=== PATIENT | female | born 1995 | race Caucasian/White ===

== ENCOUNTER 2018-09-15 09:44 | Emergency (ER) | payer BC ==
[2018-09-15 10:04] VITALS: BP 142/92
--- NOTE | 2018-09-15 10:19 | UC ---
Skin Complaint HPI - HPI Summary HPI Summary: 22 year old female presents for evaluation of pain, redness, and crusting on the left forearm and right lateral lower leg. Pt had these areas professionally tattooed on 09/06/18. She states her symptoms started 2 days ago. She has been using aquaphor and dove unscented soap to clean and dress the tattoos. She states she felt "a little feverish and nauseous" last night but not today. She also reports having mild discharge in these areas. She denies arthalgia, loss of ROM, numbness, abdominal pain, and vomiting. - History of Current Complaint Chief Complaint: UCSkin Time Seen by Provider: 09/15/18 10:02 Stated Complaint: PAINFUL TATTOO Hx Obtained From: Patient Hx Last Menstrual Period: [id number] Pain Intensity: 3 - Allergy/Home Medications Allergies/Adverse Reactions: Allergies Allergy/AdvReac Type Severity Reaction Status Date / Time No Known Allergies Allergy Verified 09/15/18 10:04 Home Medications: Home Medications glipiZIDE TAB* [Glucotrol TAB*] 5 mg PO BID 09/15/18 [History Confirmed 09/15/18 ] metFORMIN* [Glucophage 500 MG TAB *] 500 mg PO BID 09/15/18 [History Confirmed 09/15/18] PMH/Surg Hx/FS Hx/Imm Hx Previously Healthy: Yes Endocrine History: Diabetes - Surgical History Surgical History: Yes Surgery Procedure, Year, and Place: tonsillectomy/adenoiectomy 07/01 - Family History Known Family History: Positive: Non-Contributory - Social History Occupation: Employed Full-time Alcohol Use: Occasionally Substance Use Type: None Smoking Status (MU): Never Smoked Tobacco Review of Systems All Other Systems Reviewed And Are Negative: Yes Constitutional: Positive: Fever - felt "feverish" last night. Negative: Chills , Fatigue Skin: Positive: Other - redness, pain, crusting on the left forearm and right lateral lower leg Respiratory: Negative: Shortness Of Breath Cardiovascular: Negative: Palpitations, Chest Pain Gastrointestinal: Negative: Abdominal Pain, Vomiting, Diarrhea Motor: Negative: Decreased ROM Neurovascular: Positive: Negative. Negative: Decreased Sensation Musculoskeletal: Positive: Negative. Negative: Arthralgia Neurological: Positive: Negative. Negative: Headache, Weakness, Paresthesia, Numbness Physical Exam Triage Information Reviewed: Yes Appearance: Well-Appearing, No Pain Distress, Well-Nourished Vital Signs: Initial Vital Signs Temp 97.2 F 09/15/18 09:59 Pulse 72 09/15/18 09:59 Resp 18 09/15/18 09:59 BP 142/92 09/15/18 09:59 Pulse Ox 100 09/15/18 09:59 Vital Signs Reviewed: Yes Eyes: Positive: Conjunctiva Clear ENT: Positive: Normal ENT inspection, Hearing grossly normal Neck exam: Normal Neck: Positive: Supple Respiratory: Positive: Lungs clear, Normal breath sounds, No respiratory distress Cardiovascular: Positive: RRR, No Murmur, Pulses Normal, Brisk Capillary Refill Musculoskeletal: Positive: Strength Intact, ROM Intact Neurological: Positive: Alert, Muscle Tone Normal Skin: Positive: Other - Tattoos on the left forearm and right lateral leg are with areas of erythema and crusting. Right lower leg is with tenderness and purulent discharge Course/Dx - Course Course Of Treatment: Pt presents with pain, redness, and tenderness on the left forearm and right lateral leg. She had these areas tattooed professionally about 7 days prior to onset of her symptoms. Her exam reveals erythema and crusting to the areas with minimal purulent discharge on the right leg. Pt prescribed bactrim for 7 days and is treated for cellulitis. A wound culture obtained today and there were no areas that needed draining. Pt to clean the area with cholrhexidine wash. She is to follow up with any fevers, chills, and worsening of pain/tenderness and erythema. Patient was seen in conjunction with the physician field administrative assistant student. All represented history, physical and medical decision-making her mind. Patient was given chlorhexidine with which to clean the area. She was started on anti- staph antibiotic and a culture was obtained. - Differential Diagnoses - Skin Complaint Differential Diagnoses: Abscess, Cellulitis, Impetigo, Lymphangitis, MRSA - Diagnoses Provider Diagnosis: Cellulitis Discharge - Sign-Out/Discharge Documenting (check all that apply): Patient Departure All imaging exams completed and their final reports reviewed: No Studies - Discharge Plan Condition: Improved Disposition: HOME Prescriptions: Sulfamethox/Trimethoprim DS* [Bactrim DS 800/160 TAB*] 1 tab PO BID #14 tab Patient Education Materials: Cellulitis (ED) Referrals: Valeria Liriano MD [Primary Care Provider] - Additional Instructions: Clean the area with the any septic soap provided. Return with red streaking up the leg, fever, worse or other concerns. Dress the areas with bacitracin ointment. Warm compresses may help. - Billing Disposition and Condition Condition: IMPROVED Disposition: Home - Attestation Statements Document Initiated by Scribe: No
== END 2018-09-15 10:45 | disposition home or self-care (01) ==
LOC: UCEAST 09:44
DX: L03.114 Cellulitis of left upper limb (principal); L03.115 Cellulitis of right lower limb; E11.9 Type 2 diabetes mellitus without complications; Z79.84 Long term (current) use of oral hypoglycemic drugs
CPT/HCPCS: 87070; 87077; 87186; 87205; 99212; G0463

== ENCOUNTER 2019-04-08 17:17 | Emergency (ER) | payer BC ==
[2019-04-08 17:45] VITALS: BP 162/84
--- NOTE | 2019-04-08 18:10 | UC ---
Complaint Female HPI - HPI Summary HPI Summary: 23-year-old female who states she had pelvic pain last week which resolved in one day. Today it started again and she feels like her IUD is coming out. She is presently menstruating. She denies any abnormal vaginal discharge. She denies any urinary symptoms. No fever or chills. - History Of Current Complaint Chief Complaint: UCGU Stated Complaint: PERSONAL Time Seen by Provider: 04/08/19 18:09 Hx Obtained From: Patient Hx Last Menstrual Period: current ?: No Onset/Duration: Gradual Onset Timing: Constant Severity Initially: Mild Severity Currently: Moderate Pain Intensity: 7 Character: Sharp Aggravating Factor(s): Movement Alleviating Factor(s): Nothing Associated Signs And Symptoms: Positive: Vaginal Bleeding/Discharge - Presently menstruating. Negative: Vaginal Discharge, Nausea, Vomiting(# Of Episodes =), Genital Swelling, Genital Blisters, Retained Foregin Body (Specify) - Allergies/Home Medications Allergies/Adverse Reactions: Allergies Allergy/AdvReac Type Severity Reaction Status Date / Time No Known Allergies Allergy Verified 04/08/19 17:45 PMH/Surg Hx/FS Hx/Imm Hx Previously Healthy: Yes Endocrine History: Diabetes - Borderline diabetes Respiratory History: Asthma - Surgical History Surgical History: Yes Surgery Procedure, Year, and Place: tonsillectomy/adenoiectomy 07/01 - Family History Known Family History: Positive: Non-Contributory - Social History Lives: With Family Alcohol Use: Occasionally Substance Use Type: None Smoking Status (MU): Never Smoked Tobacco Review of Systems All Other Systems Reviewed And Are Negative: Yes Gastrointestinal: Positive: Abdominal Pain - Pelvic pain one day last week which resolved spontaneously and then pelvic pain started again today. Patient is presently menstruating. Is Patient Immunocompromised?: No Physical Exam Triage Information Reviewed: Yes Appearance: Pain Distress - Mild pelvic pain with movement., Obese Vital Signs: Initial Vital Signs Temp 97.5 F 04/08/19 17:41 Pulse 81 04/08/19 17:41 Resp 16 04/08/19 17:41 BP 162/84 04/08/19 17:41 Pulse Ox 98 04/08/19 17:41 Vital Signs Reviewed: Yes Eyes: Positive: Conjunctiva Clear ENT: Positive: Hearing grossly normal, Pharynx normal, TMs normal, Uvula midline Neck: Positive: Supple, Nontender, No Lymphadenopathy Respiratory: Positive: Lungs clear, Normal breath sounds, No respiratory distress, No accessory muscle use Cardiovascular: Positive: RRR, No Murmur, Pulses Normal, Brisk Capillary Refill Abdomen Description: Positive: No Organomegaly, Soft, Other: - Tenderness over the pelvic area and suprapubic area.. Negative: CVA Tenderness (R), CVA Tenderness (L), Distended, Guarding, Hepatomegaly, McBurney's Point Tenderness, Splenomegaly Bowel Sounds: Positive: Present Pelvic Exam: Positive: External Exam Normal, Bimanual Exam Normal, No Cerv. Motion Tender, Other - Part of the IUD could be visualized in the cervix. It was removed without difficulty and within 5 minutes the patient was feeling much better and her pelvic pain was almost resolved. There was only a small amount of brownish blood in the vaginal canal. Musculoskeletal Exam: Normal Neurological Exam: Normal Psychological Exam: Normal Skin Exam: Normal Complaint Female Dx - Course Course Of Treatment: Transvaginal sonogram:TRANS US TRANSVAGINAL 10/16/2015 10:30 PM FINDINGS: Uterus/ cervix: The IUD is malpositioned or has migrated inferiorly with the upper portion in the lower uterine segment and the lower portion in the lower aspect of the endocervical canal. The uterus measures 7.1 x 2.7 x 3.3 cm. Endometrial stripe thickness is 2 mm. Right adnexa: The right ovary measures 1.8 x 1.8 x 2.1 cm with normal Doppler flow. Left adnexa: The left ovary measures 3.0 x 1.8 x 2.9 cm with normal Doppler flow. Free fluid: There is a small volume of free fluid in the posterior pelvic cul-de-sac, cannot exclude ovarian cyst rupture. IMPRESSION: 1. The IUD is malpositioned or has migrated inferiorly with the upper portion in the lower uterine segment and the lower portion in the lower aspect of the endocervical canal. 2. There is a small volume of free fluid in the posterior pelvic cul-de-sac, cannot exclude ovarian cyst rupture. To contact [facility] with a general question: [facility] - [phone] For direct physician to physician contact: Physician Hotline - [phone] [facility] ([facility] Facility ID #[id number]) I was able to remove the IUD without difficulty and the patient felt much better with less cramping after just 5 minutes. She is to follow-up with her OB /SEAM RUBBER provider to discuss other methods of control. Patient was discharged ambulatory feeling much better. No evidence of pelvic infection. - Differential Dx/Diagnosis Provider Diagnosis: IUD migration Discharge ED - Sign-Out/Discharge Documenting (check all that apply): Patient Departure All imaging exams completed and their final reports reviewed: Yes - Discharge Plan Condition: Good Disposition: HOME Patient Education Materials: Pelvic Pain in Women (ED) Referrals: Valeria Liriano MD [Primary Care Provider] - Additional Instructions: Definite follow-up with your STRUCTURAL ANALYST provider in the next week for consultation regarding control. You may have some spotting following the removal of her IUD. Follow-up with your STRUCTURAL ANALYST provider if you continue to have pelvic pain or go to the emergency room if you have any worsening symptoms. - Billing Disposition and Condition Condition: GOOD Disposition: Home
== END 2019-04-08 20:10 | disposition home or self-care (01) ==
LOC: UCEAST 17:17
DX: T83.32XA Displacement of intrauterine contraceptive device, initial encounter (principal); J45.909 Unspecified asthma, uncomplicated; R73.03 Prediabetes; R10.2 Pelvic and perineal pain; Y76.8 Miscellaneous obstetric and gynecological devices associated with adverse incidents, not elsewhere classified; Y92.9 Unspecified place or not applicable
CPT/HCPCS: 76830; 81003; 84702; 99212; G0463